=== PATIENT | female | born 1975 | race Caucasian/White ===

== ENCOUNTER 2021-07-04 13:39 | Outpatient (RCR) | payer MEDICAID, SELFPAY ==
--- NOTE | ~2021-07-04 | XR_ITS ---
EXAMINATION: XR PELVIS CLINICAL INFORMATION: Rule out osteomyelitis of the sacrum COMPARISON: None TECHNIQUE: AP view of the pelvis. FINDINGS: Bone alignment is normal. No fracture, dislocation or x-ray evidence of osteomyelitis is seen. No abnormal air collection is seen in the soft tissues overlying the sacrum. Bone mineralization appears heterogeneous. There are sclerotic areas at both sacroiliac joints and pubic symphysis. No focal bone lesion is seen. The hip joints are normal. XR/XR pelvis 1-2V IMPRESSION: No x-ray evidence of osteomyelitis.
[2021-07-08 09:20] LABS: MANUAL DIFF FLAG NO
[2021-07-08 09:34] LABS: Basophils Absolute Auto 0.1 X10*3/uL (0.0-0.2); Basophils Percent Auto 0.6 % (0-2); Eosinophils Absolute Auto 0.4 X10*3/uL (0.0-0.4); Eosinophils Percent Auto 3.7 % (0-4); Hematocrit 39.9 % (37.0-47.0); Hemoglobin 12.3 g/dl (12.0-16.0); Imm Gran Abs Auto 0.07 X10*3/uL (0.00-0.03); Imm Gran Pct Auto 0.6 % (0.0-0.4); Lymphocytes Absolute Auto 2.7 X10*3/uL (1.2-4.9); Mean Corpuscular HGB Conc 30.8 g/dl (31.0-35.0); Mean Corpuscular Volume 94.1 fL (80.0-98.0); Mean Platelet Volume 10.7 fL (9.4-12.3); Monocytes Absolute Auto 0.7 X10*3/uL (0.1-1.2); Monocytes Percent Auto 5.9 % (2-11); Neutrophils Absolute Auto 7.8 x10*3/uL (2.0-8.3); Neutrophils Percent Auto 66.2 % (45-73); Platelet Count 313 X10*3/uL (160-400); Red Blood Count 4.24 X10*6/uL (4.20-5.50); Red Cell Distribution Width 15.3 % (11.0-16.0); White Blood Count 11.7 X10*3/uL (4.8-10.8)
[2021-07-08 09:49] LABS: Estimated Average Glucose 298 mg/dL
[2021-07-08 10:05] LABS: Anion Gap 13 (12-20); Blood Urea Nitrogen 21 mg/dL (9-16); C Reactive Protein 4.02 mg/dL (< or = 0.50); Calcium 10.6 mg/dL (8.4-10.2); Carbon Dioxide 26 mmol/L (22-29); Chloride 100 mmol/L (96-108); Estimated Glomerular Filt Rate 41; Glucose Fasting 178 mg/dL (60-99); Potassium 5.3 mmol/L (3.3-5.1); Sodium 134 mmol/L (135-145)
[2021-07-08 10:10] LABS: Erythrocyte Sedimentation Rate 72 MM/HR (0-20)
== END 2021-10-15 09:40 | disposition home or self-care (01) ==
LOC: HO.WCC 13:39
PROVIDERS: PCP Nurse Practitioner Family; Visit Provider Physician Assistant
DX: E11.622 Type 2 diabetes mellitus with other skin ulcer (principal); L89.314 Pressure ulcer of right buttock, stage 4; L89.223 Pressure ulcer of left hip, stage 3; M72.6 Necrotizing fasciitis; E11.65 Type 2 diabetes mellitus with hyperglycemia; I10 Essential (primary) hypertension; I25.10 Atherosclerotic heart disease of native coronary artery without angina pectoris; I25.2 Old myocardial infarction; Z79.4 Long term (current) use of insulin; Z79.2 Long term (current) use of antibiotics; Z79.84 Long term (current) use of oral hypoglycemic drugs; Z79.82 Long term (current) use of aspirin; Z79.899 Other long term (current) drug therapy
CPT/HCPCS: 11042; 11045; 36415; 72170; 80048; 83036; 84134; 85025; 85652; 86140; 97605; 99212; 99214